=== PATIENT | male | born 1980 | race Caucasian/White ===

== ENCOUNTER 2025-07-13 17:33 | Emergency (ER) | payer BC, SELFPAY ==
[2025-07-13 17:35] VITALS: BP 164/82; PULSE 70; RESP 18; O2SAT 100
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
[2025-07-13 18:03] LABS: Abs Immature Grans 0.03 10^3/uL (0.0-0.06); HCT 37.8 % (40.0-50.0); HGB 12.9 g/dL (13.5-17.5); Immature Grans % 0.3 %; MCH 28.9 pg (27.0-33.0); MCHC 34.1 % (32.0-36.0); MCV 85 fL (80-95); MPV 9.0 fL (8.0-11.0); Platelet Count 210 10^3/uL (130-400); RBC 4.47 10^6/uL (4.36-5.78); RDW 12.2 % (11.8-14.1); RDW-SD 37.2 fL; WBC 10.34 10^3/uL (4.4-10.8)
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
[2025-07-13] MEDS: Normal Saline - Diluent 50 ML VIAL IJ (18:07)
[2025-07-13] MEDS: Omnipaque 350 MG/ML 100 ML BTL IJ (18:10)
[2025-07-13] MEDS: Normal Saline Flush 10 ML SYR IVP ×2 (18:13)
[2025-07-13 18:19] LABS: INR 1.0 (0.9-1.1); PTT Activated 20.3 sec (20.6-30.2); Prothrombin Time 10.1 sec (9.1-11.1)
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
[2025-07-13 18:28] LABS: ALT 29 U/L (16-63); AST 18 U/L (15-37); Albumin 4.2 g/dL (3.4-5.0); Alkaline Phosphatase 90 U/L (46-116); Anion Gap 14.7 mmol/L (3-11); BUN 23 mg/dL (7-18); Bilirubin, Total 0.4 mg/dL (0.2-1.0); CO2 25.3 mmol/L (21.0-32.0); Calcium 9.9 mg/dL (8.5-10.1); Chloride 102 mmol/L (98-107); Estimated GFR 69.04 (mL/min/1.73m2); Glucose 103 mg/dL (74-106); Lipase 26 U/L (<78); Potassium 3.4 mmol/L (3.5-5.1); Sodium 142 mmol/L (136-145); Total Protein 7.4 g/dL (6.4-8.2); Troponin I 47 ng/L (<or=76)
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
[2025-07-13 19:22] LABS: Troponin I 38 ng/L (<or=76)
[2025-07-13] MEDS: Ketorolac 15 MG/ML VIAL IVP (19:28)
[2025-07-13 20:03] VITALS: BP 134/83; PULSE 91; RESP 16; O2SAT 98
== END 2025-07-13 20:19 | disposition home or self-care (01) ==
PROVIDERS: Emergency Provider Emergency Medicine
DX: S06.0X0A Concussion without loss of consciousness, initial encounter (principal); S00.81XA Abrasion of other part of head, initial encounter; V18.0XXA Pedal cycle driver injured in noncollision transport accident in nontraffic accident, initial encounter
CPT/HCPCS: 99285; 99283; 96374; 36415; 74177; 76705; 76857; 80053; 83690; 86850; 86900; 86901; 93308; 70450; 70486; 71260; 72125; 73130; 84484; 85025; 85610; 85730; J1885; J3490